=== PATIENT | male | born 1940 | race Caucasian/White ===

== ENCOUNTER 2016-07-29 12:11 | Inpatient (IN) | payer MEDICARE, MEDICAID ==
[~2016-07-29] VITALS: Ht 165.1 cm; Wt 101.8 kg
--- NOTE | ~2016-07-29 | DS ---
PATIENT'S NAME: ZAKIA ORTEGA [facility] AGE: 76 Y [address] ROOM: [place] [address] LOCATION: [facility] ADMIT DATE: 07/27/2016 Discharge Summary DISCHARGE DATE: 07/29/2016 FAMILY PHYSICIAN: Kush Watkins MD ATTENDING PHYSICIAN: Nikolas Mendes ADMITTING DIAGNOSIS: Osteoarthritis, right knee. COMORBIDITIES: 1. Hypertension. 2. Hyperlipidemia. 3. Obstructive sleep apnea. 4. Depression. 5. Epilepsy. 6. Hypothyroidism. 7. Gastroesophageal reflux disease. 8. Dementia. 9. Myelodysplasia. 10. History of deep venous thrombosis, with chronic Coumadin anticoagulation. HOSPITAL COURSE: The patient was admitted for a right total knee arthroplasty. He had a ConforMIS custom implant performed, 38 mm poly, M6LA inserts. He had tranexamic acid pre and postoperatively. Postoperatively, Coumadin was resumed, and Lovenox was used to bridge until INR was therapeutic. Postoperative pain control included Dilaudid and no NSAIDs. Postop visit. Neurovascular is intact to the operative leg. Dressing was clean, dry, and intact. Postop day 1, hemoglobin 8.5. Hemoglobin then drifted down to 7.3. The patient was typed, crossed, and transfused 2 units of packed red blood cells on postop day 2, and arrangements were made for the patient to be transferred to transitional care unit for continued supervised recovery after his total knee. TRANSFER INSTRUCTIONS: Mepilex on until followup visit. Continue titrating Coumadin to INR of 2.5. May discontinue Lovenox when therapeutic INR is reached. Continue other prehospitalization medication regimen as per Internal Medicine. Tramadol 50 mg 1 to 2 p.o. q.4-6 hours as needed for pain. He will continue PT and OT as instructed in transitional care. Call daily INR and CBC to Dr. Watkins for adjustments to be made in his Coumadin dosing. ANA STROUD FOR NIKOLAS MENDES MD PATIENT'S NAME: ZAKIA ORTEGA [facility] AGE: 76 Y [address] ROOM: [place] [id number] LOCATION: [facility] ADMIT DATE: 07/27/2016 Discharge Summary DISCHARGE DATE: 07/29/2016 FAMILY PHYSICIAN: Kush Watkins MD ATTENDING PHYSICIAN: Nikolas Mendes/glenn /[id number] d: 08/04/16 1053 t: 08/10/16 0903, DISCHARGE SUMMARY
--- NOTE | ~2016-07-29 | DS ---
PATIENT'S NAME: ZAKIA ORTEGA [facility] AGE: 76 Y [address] ROOM: [address], [place] [address] LOCATION: [facility] ADMIT DATE: 07/29/2016 Discharge Summary DISCHARGE DATE: 08/05/2016 FAMILY PHYSICIAN: Pablito Watkins MD ATTENDING PHYSICIAN: Nikolas Mendez HOSPITAL COURSE: Mr. Ortega had a right knee replacement courtesy of Dr. Yepez and Dr. Mendez and did well right after surgery. His thought she was unable to help him up, move him around, exercise him, and get back and forth with physical therapy, so transitional care appeared to be the appropriate next to offer him after hospital surgery, so he has been on our transitional care unit for about a week, and he did quite well. He gets up and moves and is walking several 100 feet with the aid of a walker. Able to get out of a chair and get to the bathroom, get to a chair in the room and in and out of bed. Evidently, has even mastered some stairs. Has been reasonably cooperative with his physical therapy program and nurses. Has some dementia, but has seemed to do exceptionally well during this hospitalization. So, at this particular time, I think we are ready to be transferred home. Blood sugars were under control early, and prothrombin time fell right back within the desired range, so he is off Lovenox and on oral Coumadin. Had very little pain and generally did exceptionally well. So, it is home for him at this time, be followed up, to get sutures out next week by cleaner assistant, , and will see me next week to check on his INR. Overall, very successful. FINAL DIAGNOSES: 1. Degenerative right knee with surgical replacement. 2. Borderline diabetic. 3. Seizure disorder. 4. Cardiac artery disease. 5. Dementia with memory loss. 6. Hypertension. 7. Urinary overflow incontinence. 8. Other arthritic conditions. PABLITO WATKINS MD JARASELI/glenn /[id number] d: 08/06/16 1106 t: 08/19/16 1400, DISCHARGE SUMMARY
--- NOTE | ~2016-07-29 | DS ---
PATIENT'S NAME: ZAKIA ORTEGA [facility] AGE: 76 Y [address] ROOM: [place] [address] LOCATION: [facility] ADMIT DATE: 07/27/2016 Discharge Summary DISCHARGE DATE: 07/29/2016 FAMILY PHYSICIAN: Kush Watkins MD ATTENDING PHYSICIAN: Nikolas Mendes ADMITTING DIAGNOSIS: Osteoarthritis, right knee. COMORBIDITIES: 1. Hypertension. 2. Hyperlipidemia. 3. Obstructive sleep apnea. 4. Depression. 5. Epilepsy. 6. Hypothyroidism. 7. Gastroesophageal reflux disease. 8. Dementia. 9. Myelodysplasia. 10. History of deep venous thrombosis, with chronic Coumadin anticoagulation. HOSPITAL COURSE: The patient was admitted for a right total knee arthroplasty. He had a ConforMIS custom implant performed, 38 mm poly, M6LA inserts. He had tranexamic acid pre and postoperatively. Postoperatively, Coumadin was resumed, and Lovenox was used to bridge until INR was therapeutic. Postoperative pain control included Dilaudid and no NSAIDs. Postop visit. Neurovascular is intact to the operative leg. Dressing was clean, dry, and intact. Postop day 1, hemoglobin 8.5. Hemoglobin then drifted down to 7.3. The patient was typed, crossed, and transfused 2 units of packed red blood cells on postop day 2, and arrangements were made for the patient to be transferred to transitional care unit for continued supervised recovery after his total knee. TRANSFER INSTRUCTIONS: Mepilex on until followup visit. Continue titrating Coumadin to INR of 2.5. May discontinue Lovenox when therapeutic INR is reached. Continue other prehospitalization medication regimen as per Internal Medicine. Tramadol 50 mg 1 to 2 p.o. q.4-6 hours as needed for pain. He will continue PT and OT as instructed in transitional care. Call daily INR and CBC to Dr. Watkins for adjustments to be made in his Coumadin dosing. ANA STROUD FOR NIKOLAS MENDES MD PATIENT'S NAME: ZAKIA ORTEGA [facility] AGE: 76 Y [address] ROOM: [place] [id number] LOCATION: [facility] ADMIT DATE: 07/27/2016 Discharge Summary DISCHARGE DATE: 07/29/2016 FAMILY PHYSICIAN: Kush Watkins MD ATTENDING PHYSICIAN: Nikolas Mendes/glenn /[id number] d: 08/04/16 1053 t: 08/10/16 0923, DISCHARGE SUMMARY
--- NOTE | ~2016-07-29 | DS ---
PATIENT'S NAME: ZAKIA ORTEGA [facility] AGE: 76 Y [address] ROOM: [place] [address] LOCATION: [facility] ADMIT DATE: 07/27/2016 Discharge Summary DISCHARGE DATE: 07/29/2016 FAMILY PHYSICIAN: Kush Watkins MD ATTENDING PHYSICIAN: Nikolas Mendes ADMITTING DIAGNOSIS: Osteoarthritis, right knee. COMORBIDITIES: 1. Hypertension. 2. Hyperlipidemia. 3. Obstructive sleep apnea. 4. Depression. 5. Epilepsy. 6. Hypothyroidism. 7. Gastroesophageal reflux disease. 8. Dementia. 9. Myelodysplasia. 10. History of deep venous thrombosis, with chronic Coumadin anticoagulation. HOSPITAL COURSE: The patient was admitted for a right total knee arthroplasty. He had a ConforMIS custom implant performed, 38 mm poly, M6LA inserts. He had tranexamic acid pre and postoperatively. Postoperatively, Coumadin was resumed, and Lovenox was used to bridge until INR was therapeutic. Postoperative pain control included Dilaudid and no NSAIDs. Postop visit. Neurovascular is intact to the operative leg. Dressing was clean, dry, and intact. Postop day 1, hemoglobin 8.5. Hemoglobin then drifted down to 7.3. The patient was typed, crossed, and transfused 2 units of packed red blood cells on postop day 2, and arrangements were made for the patient to be transferred to transitional care unit for continued supervised recovery after his total knee. TRANSFER INSTRUCTIONS: Mepilex on until followup visit. Continue titrating Coumadin to INR of 2.5. May discontinue Lovenox when therapeutic INR is reached. Continue other prehospitalization medication regimen as per Internal Medicine. Tramadol 50 mg 1 to 2 p.o. q.4-6 hours as needed for pain. He will continue PT and OT as instructed in transitional care. Call daily INR and CBC to Dr. Watkins for adjustments to be made in his Coumadin dosing. ANA STROUD FOR NIKOLAS MENDES MD PATIENT'S NAME: ZAKIA ORTEGA [facility] AGE: 76 Y [address] ROOM: [place] [id number] LOCATION: [facility] ADMIT DATE: 07/27/2016 Discharge Summary DISCHARGE DATE: 07/29/2016 FAMILY PHYSICIAN: Kush Watkins MD ATTENDING PHYSICIAN: Nikolas Mendes/glenn /[id number] d: t: 08/08/16 0802, DISCHARGE SUMMARY
[~2016-07-29 12:11] MED LIST: BUMETANIDE2 MG PO; CELEXA40 MG PO; COUMADIN ** IA5 MG PO; COUMADIN **IA1 MG PO; COUMADIN **IA10 MG PO; COUMADIN **IA2.5 MG PO; CPAP INH; DEPAKOTE DELAY250 MG PO; DEPAKOTE EXTEN250 MG PO; DESYREL50 MG PO; FEOSOL325 MG PO; FOLIC ACID1 MG PO; LEVOTHROID (S112 MCG PO; LEVOTHROID (S125 MCG PO; LEVOTHYROXINE100 MCG PO; LOVENOX 6060 MG/0.6 SUB-Q; PRILOSEC20 MG PO; RANEXA ER500 MG PO; SINEMET CR 25-1 EACH PO; SINEMET PO; THERAGRAN-M1 TAB PO; VITAMIN B-1100 M1 PO
--- NOTE | 2016-07-29 16:38 | NUR ---
D: Nursing Admission Summary From [address] [place] [address] to TCU I: Nursing interventions provided to support the patient's individual plan of care R: MOBILITY-- Moves 1 assist with walker and gaitbelt. Knee is stiff. NUTRITION-- Good appetite, eats small amounts to control diabetes. SKIN/INCISIONS/WOUNDS-- Incision to right knee covered with mepilex. Has scattered bruises and abrasions and redness to bottom. SELF CARES-- Patient able to do most own cares, needs encouragement. BOWEL/BLADDER-- Continent of both. Last BM on 07/27/16. Dulcolax tabs given on 07/29/16 by Leno stacy. RESPIRATORY-- PAIN-- PSYCHOSOCIAL-- COGNITION-- SPECIAL NEEDS-- BLEEDING-- SENSORY IMPAIRMENTS/DENTAL NEEDS: TEACHING NEEDS-- INFECTION CONCERNS: RISK FOR ELOPEMENT: NEED FOR BED/MOVEMENT ALARM: DISMISSAL PLANS: Other: P: Current plan of care reviewed and updated
--- NOTE | 2016-07-29 16:43 | NUR ---
D: Nursing Admission Summary From [facility] to [facility] I: Nursing interventions provided to support the patient's individual plan of care R: MOBILITY-- 1 assist with walker and gaitbelt. NUTRITION-- Good appetite, good intake. Eats small meals to control diabetes with diet. SKIN/INCISIONS/WOUNDS-- Abrasions/bruising throughout extremities. Redness to bottom, Mepilex covering right knee incision. SELF CARES-- Patient able to do own self cares with encouragement. BOWEL/BLADDER-- Continent of both. Last BM on 07/27, [facility] gave dulcolax tabs today 07/29 RESPIRATORY-- Clear throughout. Does wear cpap at night and occasionally needs oxygen. PAIN-- Pain has been well controlled, have offered multiple times, but patient denies need for pain medication at this time. PSYCHOSOCIAL-- Does have history of suicidal thoughts, denies them at this time. Takes celexa, ativan, trazodone for sleeping and depression. COGNITION-- Alert and oriented X 3. SPECIAL NEEDS-- BLEEDING-- Takes lovenox BID until INR >2.0. Takes coumadin that Dr. SHONDA Watkins is dosing daily. PT/INR and CBC drawn daily. Needs printed and put on chart for SHONDA Watkins. SENSORY IMPAIRMENTS/DENTAL NEEDS: Left ear deaf, wears glasses for corrective vision. TEACHING NEEDS-- INFECTION CONCERNS: Handwashing, incision to right knee RISK FOR ELOPEMENT: None NEED FOR BED/MOVEMENT ALARM: at night per protocol DISMISSAL PLANS: home Other: P: Current plan of care reviewed and updated XOCHITL [place]
--- NOTE | 2016-07-30 03:01 | NUR ---
Significant Event:PT AAOX3.PLEASANT WITH STAFF AND CARES. DENIES PAIN DURING SHIFT. BS 155 AT HS NO INSULIN NEEDED. MEPIPLEX TO RIGHT KNEE CLEAN DRY AND INTACT. UP WITH 1 ASSIST STAFF, GB, WALKER. DOES WELL WITH TRANSERS. IV TO LEFT HAND DC'D DUE TO LEAKING. GAVE ORDER TO DC. PT TAKES MEDICAITON WHOLE WITH NO COMPLICAIONTS NOTED. Follow up:
[2016-07-30 06:32] LABS: BASOPHIL # 0.1 K/uL (0.0-0.2); BASOPHIL % 0.6 %; EOSINOPHIL # 0.1 K/uL (0.0-0.5); EOSINOPHIL % 1.7 %; HEMOGLOBIN 9.4 g/dL (11.0-16.0); IMMATURE GRANULOCYTE # 0.1 K/uL (0.0-0.3); IMMATURE GRANULOCYTE % 0.6 %; LYMPHOCYTE # 1.8 K/uL (0.8-4.0); LYMPHOCYTE % 22.6 %; MCHC 33.5 gm/dL (32.0-36.5); MCV 92.4 fl (83.0-98.0); MONOCYTE # 1.2 K/uL (0.0-1.0); MONOCYTE % 14.6 %; MPV 11.6 fl (9.4-12.4); NEUTROPHIL # (ANC) 4.7 K/uL (1.4-9.0); NEUTROPHIL % 59.9 %; NRBC % 0 /100WBC (0-0.00); PLATELET COUNT 114 K/uL (150-450); RDW-CV 15.8 % (11.9-14.6); WBC 7.9 K/uL (4.0-11.0)
[2016-07-30 06:33] LABS: HEMATOCRIT 28.1 % (37.0-53.0); MCH 30.9 pg (27.0-34.0); RBC 3.04 M/uL (3.50-5.50)
[2016-07-30 06:35] LABS: INR - (THERAPEUTIC) 1.3 (0.9-1.1)
--- NOTE | 2016-07-30 14:45 | NUR ---
Significant Event: A/0 X 3, PLEASANT AND COOPERATIVE, 1 ASSIST WALKER AND GB, HERE TO VISIT, PT/OT SERVICES, DR. LOYOLA HERE THIS AM ORDERS COUMADIN 15MG TODAY AND TOMORROW, DC ACCUCHECKS AND SLIDING SCALE INSULIN. MEPILEX DRESSING TO L KNEE DRY AND INTACT, ES TYLENOL GIVEN AT 0830 FOR KNEE PAIN. HGB 9.4 TODAY. CONTINUES LOVENOX. TEMP 99.0 THIS AM. Follow up:
--- NOTE | 2016-07-31 01:29 | NUR ---
Significant Event: Patient is alert and oriented. Transfers with one assist with gait belt and walker. Pleasant and cooperative with cares. Mepiplex to right knee clean, dry and intact. Denies pain this shift. Continues on lovenox. Follow up:
[2016-07-31 05:40] LABS: BASOPHIL % 0.5 %; EOSINOPHIL # 0.2 K/uL (0.0-0.5); EOSINOPHIL % 2.7 %; HEMATOCRIT 26.9 % (37.0-53.0); HEMOGLOBIN 8.9 g/dL (11.0-16.0); IMMATURE GRANULOCYTE % 0.5 %; LYMPHOCYTE # 1.7 K/uL (0.8-4.0); LYMPHOCYTE % 23.1 %; MCH 30.7 pg (27.0-34.0); MCHC 33.1 gm/dL (32.0-36.5); MCV 92.8 fl (83.0-98.0); NEUTROPHIL # (ANC) 4.3 K/uL (1.4-9.0); NEUTROPHIL % 59.2 %; NRBC % 0 /100WBC (0-0.00); PLATELET COUNT 123 K/uL (150-450); RDW-CV 15.4 % (11.9-14.6); WBC 7.3 K/uL (4.0-11.0)
[2016-07-31 05:46] LABS: INR - (THERAPEUTIC) 1.6 (0.9-1.1)
--- NOTE | 2016-07-31 13:54 | NUR ---
Significant Event: Alert/oriented. VSS. 1a walker/gb. Right knee mepilex CDI. No prn medications so far this shift. Daily INR, lovenox until greater than 2.0 Follow up:
--- NOTE | 2016-08-01 03:40 | NUR ---
Significant Event: Patient is alert and oriented. Transfers with one assist and gait belt/ walker. Pleasant and cooperative with cares. Mepiplex to right knee clean, dry and intact. Daily INR. Denies pain this shift. Lovenox continues until INR greater than 2.0 Follow up:
[2016-08-01 05:39] LABS: BASOPHIL # 0.1 K/uL (0.0-0.2); EOSINOPHIL # 0.2 K/uL (0.0-0.5); EOSINOPHIL % 3.8 %; HEMOGLOBIN 8.9 g/dL (11.0-16.0); IMMATURE GRANULOCYTE % 0.5 %; LYMPHOCYTE # 1.6 K/uL (0.8-4.0); LYMPHOCYTE % 27.1 %; MCH 30.9 pg (27.0-34.0); MCV 93.8 fl (83.0-98.0); MONOCYTE # 0.7 K/uL (0.0-1.0); MONOCYTE % 11.6 %; MPV 10.1 fl (9.4-12.4); NEUTROPHIL # (ANC) 3.3 K/uL (1.4-9.0); NRBC % 0 /100WBC (0-0.00); PLATELET COUNT 140 K/uL (150-450); RBC 2.88 M/uL (3.50-5.50); WBC 5.8 K/uL (4.0-11.0)
[2016-08-01 05:49] LABS: PROTIME 21.8 SECONDS (9.6-11.1)
--- NOTE | 2016-08-01 17:08 | NUR ---
Significant Event: Follow up: UP to chair, up to toilet with standby assist x1. Dressing to right knee c/d/i. offers very little c/o pain took tylenol at 1126 with good relief. lovenox stopped today, and coumadin adjusted.
--- NOTE | 2016-08-02 04:12 | NUR ---
Significant Event: Patient alert and oriented x3. Up with one assist and walker. Right knee mepilex clean,dry and intact. Vital signs stable, on room air. Wears cpap at night. No complaints of pain. Foot pumps on. Has slept and rested well all shift. Follow up:
[2016-08-02 06:34] LABS: INR - (THERAPEUTIC) 2.2 (0.9-1.1); PROTIME 25.1 SECONDS (9.6-11.1)
--- NOTE | 2016-08-02 12:13 | NUR ---
76 y/o male from [place], [place] admitted to TCU from [address] [place] [address] after r) knee replacement surgery with . patient is also followed by Dr.JD Watkins of [place]. He is receiving OT/PT and daily PT/INR to monitor his coumadin levels. Patient lives with his significant other Ava Shelley in the [facility] on [address]. Ava inquired about low income housing, like [facility], and SW editorial intern gave patient and s.o. the phone # for [facility] to inquire about barrier free housing in [facility]. Patient has medicare/medicaid/[facility] for insurance. [place] and states the [place] will provide a van for transportation, as s.o. states she has put alot of miles on her car going to dr eagle and therapy appointements. Patient gets the majority of his medications through the [place]. He also can get his weekly coumadin lab draws (PT/INR) through the [place], or here in [place], as s.o. states it is too far to drive to [place] to Dr.JD Watkinss office every week for labwork, and then drive to for therapy and counseling appointments. Patient also gets IV iron and s.o. states he could get the IV iron when he gets his labdraws. [facility]. Would like to d/c on Monday08-05-16 at 1100am if medically ok to d/c at that time. Therapy in agreement to plan. Patient states is in agreement to plan at this time. patient has a 4 wheeled walker through the [place]. He also obtained a toilet seat riser, toilet safety frame and tub chair from the [employer].
--- NOTE | 2016-08-02 16:59 | NUR ---
Significant Event: Pt is a/o x 3, pleasant and cooperative with cares. Gave tylenol x 2, last at 1408 with relief noted. Pt had shower with therapy and got shaved by nurse. V/S stable. Ambulated with therapy and again with nursing this afternoon. L) knee mepilex clean/dry/intact, peeling slightly at the edges. Noted a couple of red spots on upper back; pt c/o itching; reports itching stopped after shower. Got 10 mg coumadin today per Dr. Watkins. [facility]SM WNL. Pt made mod indep in room. Follow up:
--- NOTE | 2016-08-03 03:49 | NUR ---
Significant Event: Alert/Oriented x3. Mod I in room. Ice pack to right knee. Tylenol 650 MG PO given at 2158 with relief for right knee pain. Mepilex in place over right knee surgical incision, CDI. Follow up:
[2016-08-03 06:18] LABS: INR - (THERAPEUTIC) 2.1 (0.9-1.1); PROTIME 23.4 SECONDS (9.6-11.1)
--- NOTE | 2016-08-03 11:00 | NUR ---
Social visit with patient's . SW provided with information on local DME providers who carry FWWs. states she is going to stop by the [employer] to see if they have one. Otherwise, she will look into purchasing one from [employer] or [employer] for cost savings. Plan to d/c on Saturday 08/05 at 1100 if medically alright to do so.
--- NOTE | 2016-08-03 13:59 | NUR ---
Significant Event: Patient alert and oriented. Hard of hearing. Ad dylan in room and halls. Mepilex to right knee intact. Taking Ultram and Tylenol for pain. On hazardous medications. Follow up:
--- NOTE | 2016-08-04 00:52 | NUR ---
Significant Event: Alert/oriented x3. Mepilex dressing on R) knee CDI. Patient denied need for ice pack. Denied pain at 1950. Patient Mod I in room. Back rub given. Patient requested 1,000 mg of Tylenol at 2347 for mild R) knee pain. Edema present in right leg. Takes meds whole w/out difficulty. Follow up:
[2016-08-04 04:57] LABS: INR - (THERAPEUTIC) 2.3 (0.9-1.1); PROTIME 25.3 SECONDS (9.6-11.1)
--- NOTE | 2016-08-04 14:51 | NUR ---
Significant Event: Follow up: Up ad dylan in room. Little c/o pain. tylenol for pain this am. Meiplex changed due to falling off. plans to discharge to his home tomorrow.
--- NOTE | 2016-08-04 17:30 | NUR ---
Tylenol po at 1630 for pain knee rated at 5. Pt is up in the chair
--- NOTE | 2016-08-05 04:43 | NUR ---
Significant Event: A/O x3. DENIES ANY PAIN. REFUSE ICE PACK. PT UP AD XOCHITL IN ROOM. MOD I IN ROOM. Follow up:
[2016-08-05 05:08] LABS: PROTIME 22.3 SECONDS (9.6-11.1)
--- NOTE | 2016-08-05 05:36 | NUR ---
D: Nursing discharge Summary From 07/29/16 to 08/05/16 I: Nursing interventions provided to support the patient's individual plan of care R: MOBILITY-- indepedent with walker NUTRITION-- diabetic diet SKIN/INCISIONS/WOUNDS-- follow up appointment monday for staple removal SELF CARES-- independent BOWEL/BLADDER-- continent RESPIRATORY-- room air daily, c-pap at night PAIN-- denies. tylenol prn PSYCHOSOCIAL-- COGNITION-- A/O SPECIAL NEEDS-- Walker BLEEDING-- Coumadin SENSORY IMPAIRMENTS/DENTAL NEEDS: glasses TEACHING NEEDS-- INFECTION CONCERNS: handwashing. signs and symptoms of infection to knee. RISK FOR ELOPEMENT: none NEED FOR BED/MOVEMENT ALARM:none DISMISSAL PLANS: To home. Other: P: Current plan of care reviewed and updated Emmanuel 08/05/16
[2016-08-05] MEDS ORDERED: NORCO 5-325 TA1 EACH PO (10:43)
--- NOTE | 2016-08-05 11:45 | NUR ---
D: Nursing Dismissal Summary I: Nursing interventions provided to support the patient's individual plan of care R: MOBILITY-- ambulating independent in room and in halls. NUTRITION-- Diabetic diet SKIN/INCISIONS/WOUNDS-- Tabitha to right knee intact. Covered with guaze and tubigrip SELF CARES-- Needs only minimal assistance with ADL's. OT helped him with shower this morning. BOWEL/BLADDER-- Continent of bowel and bladder RESPIRATORY-- On room air. Wears CPAP at night. PAIN-- Taking Ultram and Tylenol PRN for pain. PSYCHOSOCIAL-- Good support from family and COGNITION-- Alert and oriented. NEED FOR BED/MOVEMENT ALARM: As per hospital protocol DISMISSAL PLANS: Back to home with Other: P: Current plan of care reviewed and updated Danni Ramos RN 08/05/16
[2016-08-30] MEDS ORDERED: FLOMAX0.4 MG PO (18:15)
[2016-08-30] MEDS ORDERED: FLORINEF0.1 MG PO (18:15)
[2016-08-30] MEDS ORDERED: PRINIVIL OR ZES10 MG PO (18:15)
[2016-08-30] MEDS ORDERED: LIPITOR40 MG PO (18:16)
[2016-08-30] MEDS ORDERED: DESYREL50 MG PO (18:16)
[2016-08-30] MEDS ORDERED: DEPAKOTE DELAY500 MG PO (18:16)
[2016-08-30] MEDS ORDERED: IMDUR60 MG PO (18:16)
[2016-08-30] MEDS ORDERED: ASPIRIN LO-DOSE81 MG PO (18:16)
[2016-08-30] MEDS ORDERED: TYLENOL325 MG PO (18:16)
[2016-08-30] MEDS ORDERED: LASIX20 MG PO (18:16)
[2016-08-30] MEDS ORDERED: CELEXA40 MG PO (18:16)
[2016-08-30] MEDS ORDERED: NORVASC10 MG PO (18:16)
[2016-08-30] MEDS ORDERED: CENTURY ADULTS1 EACH PO (18:16)
[2016-08-30] MEDS ORDERED: PROTONIX40 MG PO (18:17)
[2016-08-30] MEDS ORDERED: FOLIC ACID1 MG PO (18:17)
[2016-08-30] MEDS ORDERED: INFED100 MG/2 M IM (18:17)
[2016-08-30] MEDS ORDERED: THIAMINE HCL100 MG PO (18:17)
[2016-08-30] MEDS ORDERED: RISPERDAL0.25 MG PO (18:17)
[2016-08-31] MEDS ORDERED: CYMBALTA20 MG PO (10:39)
== END 2016-08-05 11:20 | disposition disaster alternative care site (69) | DRG 560 ==
LOC: GSNF 12:11
PROVIDERS: Family Medicine; ADMIT Orthopaedic Surgery
DX: Z47.1 Aftercare following joint replacement surgery (principal); I50.22 Chronic systolic (congestive) heart failure; F03.90 Unspecified dementia, unspecified severity, without behavioral disturbance, psychotic disturbance, mood disturbance, and anxiety; I11.0 Hypertensive heart disease with heart failure; D46.9 Myelodysplastic syndrome, unspecified; K21.9 Gastro-esophageal reflux disease without esophagitis; F32.9 Major depressive disorder, single episode, unspecified; Z96.651 Presence of right artificial knee joint; E78.5 Hyperlipidemia, unspecified; E03.9 Hypothyroidism, unspecified; G40.909 Epilepsy, unspecified, not intractable, without status epilepticus; I25.10 Atherosclerotic heart disease of native coronary artery without angina pectoris; G47.33 Obstructive sleep apnea (adult) (pediatric); R73.03 Prediabetes; N39.490 Overflow incontinence; Z86.718 Personal history of other venous thrombosis and embolism; Z79.01 Long term (current) use of anticoagulants; Z79.899 Other long term (current) drug therapy; M19.90 Unspecified osteoarthritis, unspecified site
CPT/HCPCS: J1650

== ENCOUNTER → 2016-10-10 | Outpatient (CLI) | payer MEDICARE, MEDICAID ==
[~2016-10-10] MED LIST changes: +ASPIRIN LO-DOSE81 MG PO; +CENTURY ADULTS1 EACH PO; +CYMBALTA20 MG PO; +DEPAKOTE DELAY500 MG PO; +FLOMAX0.4 MG PO; +FLORINEF0.1 MG PO; +IMDUR60 MG PO; +INFED100 MG/2 M IM; +LASIX20 MG PO; +LIPITOR40 MG PO; +NORCO 5-325 TA1 EACH PO; +NORVASC10 MG PO; +PRINIVIL OR ZES10 MG PO; +PROTONIX40 MG PO; +RISPERDAL0.25 MG PO; +THIAMINE HCL100 MG PO; +TYLENOL325 MG PO
[2016-10-10 13:41] LABS: BASOPHIL # 0.1 K/uL (0.0-0.2); BASOPHIL % 0.9 %; EOSINOPHIL # 0.2 K/uL (0.0-0.5); EOSINOPHIL % 2.3 %; IMMATURE GRANULOCYTE % 0.3 %; LYMPHOCYTE # 2.7 K/uL (0.8-4.0); MCHC 32.1 gm/dL (32.0-36.5); MCV 93.3 fl (83.0-98.0); MONOCYTE # 0.5 K/uL (0.0-1.0); MONOCYTE % 7.7 %; MPV 10.7 fl (9.4-12.4); NEUTROPHIL # (ANC) 3.4 K/uL (1.4-9.0); NEUTROPHIL % 49.8 %; NRBC % 0 /100WBC (0-0.00); WBC 6.9 K/uL (4.0-11.0)
[2016-10-10 13:44] LABS: PLATELET COUNT 153 K/uL (150-450); RDW-CV 15.4 % (11.9-14.6)
[2016-10-10 13:50] LABS: INR - (THERAPEUTIC) 1.17 (0.92-1.07); PROTIME 12.3 SECONDS (9.8-11.4)
[2016-10-10 14:07] LABS: ALBUMIN 3.1 gm/dL (3.5-5.0); ANION GAP 9.3 (10.0-19.0); CALCIUM 7.9 mg/dL (8.5-10.5); POTASSIUM 4.3 mMol/L (3.7-5.1); TOTAL PROTEIN 6.6 g/dL (6.0-8.4)
[2016-10-10 14:15] LABS: TOTAL BILIRUBIN 0.5 mg/dL (0.0-1.5)
== END | disposition disaster alternative care site (69) ==
LOC: LELM 13:26
PROVIDERS: Family Medicine
DX: D68.318 Other hemorrhagic disorder due to intrinsic circulating anticoagulants, antibodies, or inhibitors (principal); Z79.01 Long term (current) use of anticoagulants; R42 Dizziness and giddiness; M23.51 Chronic instability of knee, right knee

== ENCOUNTER 2016-10-25 11:29 | Emergency (ER) | payer MEDICARE, MEDICAID ==
--- NOTE | ~2016-10-25 | ER ---
PATIENT'S NAME: ZAKIA ORTEGA [facility] AGE: 76 Y [address] ROOM: [place] [address] LOCATION: [facility] ADMIT DATE: 10/25/2016 ER/Outpatient Report DISCHARGE DATE: 10/25/2016 FAMILY PHYSICIAN: Kush Watkins MD ATTENDING PHYSICIAN: Pablo Cobb CHIEF COMPLAINT: Generalized weakness, possible confusion and dizziness. HISTORY OF PRESENT ILLNESS: The patient arrives by private vehicle with his friend and roommate. The roommate notes that he just has not been himself and has been slow decline over the last several months. For the last 2 days, he has been particularly slowed mentally. There has been no particular confusion, falls, or anything along those lines, which just has been his normal self and thinks maybe he has been a little more uncomfortable. No acute changes today. [facility] He normally talk with Dr. Watkins in [place]. No medications have been taken today. No other acute findings or concerns. PAST MEDICAL HISTORY: Documented on the record and reviewed by me. SOCIAL HISTORY: Documented on the record and reviewed by me. MEDICATIONS: Documented on the record and reviewed by me. ALLERGIES: DOCUMENTED ON THE RECORD AND REVIEWED BY ME. REVIEW OF SYSTEMS: All systems reviewed and negative except as noted in HPI. PHYSICAL EXAMINATION: VITAL SIGNS: Blood pressure 161/64, pulse 85, respiratory rate is 20, temperature 98.6, SpO2 is 96% on room air. Pain is rated 2/10. GENERAL: An age-appropriate male. No obvious pain or distress. NEURO: The patient is awake. He is alert to person, place, and situation. He is alert, it is 2017, not in month or date. He has no focal deficits. No asymmetry. No nystagmus. No difficulty with rapid alternating movements. No problem with complex cognitive plan. No problems with past pointing. HEENT: Normocephalic and atraumatic. Eyes are PERRL. Oropharynx is clear. NECK: Supple. Trachea is midline CHEST/HEART: Regular rate and rhythm with PATIENT'S NAME: ZAKIA ORTEGA [facility] AGE: 76 Y [address] ROOM: [place] [address] LOCATION: [facility] ADMIT DATE: 10/25/2016 ER/Outpatient Report DISCHARGE DATE: 10/25/2016 FAMILY PHYSICIAN: Kush Watkins MD ATTENDING PHYSICIAN: Pablo Cobb no murmurs. LUNGS: Clear to auscultation bilateral with no rhonchi, wheezes, or rales. ABDOMEN: Soft, nontender, and nondistended. No rebound or guarding. BACK: Back is normal to inspection and palpation. EXTREMITIES: Warm and well perfused. No obvious abnormalities, other than some trace edema at the sock line bilateral. SKIN: Warm, dry, and intact. LABORATORY DATA AND X-RAYS: An EKG, sinus rhythm with rate of 80 with normal intervals and left axis deviation. No signs of acute ischemia. No significant change compared to prior from 07/26/2016. Labs: Blood gas; pH 7.45, pCO2 is 39, PO2 is 93, HC03 is 27.1, lactate is 1.4. CMS: Sodium 146, potassium 4.0, chloride 111, CO2 is 27, BUN is 24, creatinine 2.1. GFR is 31. LFTs grossly unremarkable. Bilirubin, AST, and ALT within normal limits. Initial CK-MB and troponin below threshold. Free T4 and TSH within limits. ProBNP 465. Urinalysis without evidence of infection. Procalcitonin below threshold. CBC: White count is 5.1, hemoglobin is 9.2, and platelets of 150. INR is 1.16. Head CT and chest x-ray unremarkable per my read. Head CT confirmed by Radiology. IMPRESSION: 1. General decline, chronic. 2. Mild hypernatremia. 3. Chronic renal failure at baseline. 4. Chronic anemia at baseline. EMERGENCY DEPARTMENT COURSE: The patient was seen and evaluated as above. Extensive workup was undertaken. Based on time frame, single troponin is appropriate to exclude ACS. Overall, the patient appears to be at baseline. He is ambulatory with his walker as normal. I did discharge the patient home with his friend in good condition. He has plans to be seen tomorrow at the [facility]. I also discussed the care of Mr. Ortega with Dr. Watkins, the patient's primary care provider, who agrees the patient likely needs higher level of care, such as [facility] cares. The patient does not meet admission criteria at this time and thus will need to follow up as an outpatient. MD HERACLIO GILLILAND/glenn PATIENT'S NAME: ZAKIA ORTEGA [facility] AGE: 76 Y [address] ROOM: [place] [address] LOCATION: [facility] ADMIT DATE: 10/25/2016 ER/Outpatient Report DISCHARGE DATE: 10/25/2016 FAMILY PHYSICIAN: Kush Watkins MD ATTENDING PHYSICIAN: Pablo Cobb /[id number] d: 10/27/16 1133 t: 11/02/16 0932, OUTPATIENT REPORT
[2016-10-25 13:09] LABS: BASOPHIL % 0.8 %; EOSINOPHIL # 0.2 K/uL (0.0-0.5); HEMATOCRIT 27.7 % (37.0-53.0); HEMOGLOBIN 9.2 g/dL (11.0-16.0); IMMATURE GRANULOCYTE % 0.2 %; LYMPHOCYTE # 1.5 K/uL (0.8-4.0); LYMPHOCYTE % 30.1 %; MCH 30.9 pg (27.0-34.0); MCHC 33.2 gm/dL (32.0-36.5); MONOCYTE # 0.5 K/uL (0.0-1.0); MONOCYTE % 9.1 %; MPV 10.7 fl (9.4-12.4); NEUTROPHIL # (ANC) 2.9 K/uL (1.4-9.0); NEUTROPHIL % 56.8 %; NRBC % 0 /100WBC (0-0.00); PLATELET COUNT 150 K/uL (150-450); RBC 2.98 M/uL (3.50-5.50); RDW-CV 14.7 % (11.9-14.6); WBC 5.1 K/uL (4.0-11.0)
[2016-10-25 13:21] LABS: INR - (THERAPEUTIC) 1.16 (0.92-1.07); PROTIME 12.2 SECONDS (9.8-11.4); PTT 25 SECONDS (25-32)
[2016-10-25 13:30] LABS: BILIRUBIN URINE NEGATIVE (NEGATIVE); BLOOD URINE 10 /UL (NEGATIVE); COLOR URINE YELLOW (YELLOW); GLUCOSE URINE NEGATIVE (NEGATIVE); KETONE URINE NEGATIVE (NEGATIVE); LEUKOCYTES URINE NEGATIVE /UL (NEGATIVE); NITRITE URINE NEGATIVE (NEGATIVE); PROTEIN URINE 30 mg/dL (NEGATIVE); SPEC GRAVITY URINE 1.015 (1.003-1.035); TURBIDITY URINE CLEAR (CLEAR); UROBILINOGEN URINE NORMAL (NORMAL)
[2016-10-25 13:31] LABS: ALBUMIN 2.9 gm/dL (3.5-5.0); ALK PHOS 58 IU/L (33-138); ALT 15 IU/L (12-78); AST 12 IU/L (10-40); BLOOD UREA NITROGEN 24 mg/dL (6-24); CALCIUM 8.1 mg/dL (8.5-10.5); CHLORIDE 111 mMol/L (96-110); CO2 27 mMol/L (22-32); CREATININE 2.1 mg/dL (0.6-1.3); ESTIMATED GFR (MDRD EQUATION) 31; TOTAL PROTEIN 6.3 g/dL (6.0-8.4)
[2016-10-25 13:33] LABS: SODIUM 146 mMol/L (135-145); TOTAL BILIRUBIN 0.3 mg/dL (0.0-1.5)
[2016-10-25 13:39] LABS: BACTERIA URINE NEGATIVE (NEGATIVE); EPITHELIAL URINE 0-2 #/HPF (NEGATIVE); RBC URINE 0-2 #/HPF (NEGATIVE); WBC URINE NEGATIVE #/HPF (NEGATIVE)
[2016-10-25 14:10] LABS: BICARBONATE 27.1 mmol/L (18.0-23.0); LACTATE 1.4 mEq/L (0.50-1.60); PCO2 39 mmHg (35-45); PO2 93 mmHg (80-90)
== END 2016-10-25 14:59 | disposition disaster alternative care site (69) ==
LOC: GMED 11:29
PROVIDERS: Emergency Medicine
DX: R53.81 Other malaise (principal); E87.0 Hyperosmolality and hypernatremia; N18.9 Chronic kidney disease, unspecified; D64.9 Anemia, unspecified

== ENCOUNTER 2016-11-30 12:19 | Emergency (ER) | payer MEDICARE, MEDICAID ==
--- NOTE | ~2016-11-30 | ER ---
PATIENT'S NAME: ZAKIA ORTEGA [facility] AGE: 76 Y [address] ROOM: [place] [address] LOCATION: [facility] ADMIT DATE: 11/30/2016 ER/Outpatient Report DISCHARGE DATE: 11/30/2016 FAMILY PHYSICIAN: Kush Watkins MD ATTENDING PHYSICIAN: Génesis Dennis Time of patient arrival is 1219 hours. Time of patient's evaluation is 1225 hours. CHIEF COMPLAINT: Shakiness. HISTORY OF PRESENT ILLNESS: This 76-year-old male presents to ER, states he has not "felt well for a couple of weeks." The patient states his appetite has been down. He states he has had no nausea or vomiting. No diarrhea. He states he maybe feels a little bit weak as well. Has not been eating much. He states that he has had a few loose stools, but has not had a bowel movement in the last couple of days. He has had no pain with urination. No chest pain. Has a little bit of shortness of breath, but he states that is nothing new for him. He states he was at his primary care physician's 4 days ago. Had some sutures removed, but states he was feeling fine at that time and did think about asking his doctor about why he was not feeling well. MEDICATIONS: Please see medication list in nurse's notes. PAST MEDICAL HISTORY: Hypertension, hypercholesterolemia, sleep apnea, epilepsy, hypothyroidism, acid reflux, dementia, history of DVT, is on blood thinner. SOCIAL HISTORY: Denies smoking, drug, or alcohol use. REVIEW OF SYSTEMS: All systems reviewed and negative with the exception of those discussed in the HPI. PHYSICAL EXAMINATION: VITAL SIGNS: Height 5 feet 5 inches, stated. Weight 86.7 kg, taken. Blood pressure is 132/64, pulse 82, respirations 18, temperature 99 degrees tympanically, saturations 96% on room air. Minnie Coma Score is 15. GENERAL: Alert, calm, well-developed male, in no obvious distress. HEENT: Head: Normocephalic. Eyes: Pupils are equal and reactive to light. He does display moist mucous membranes. PATIENT'S NAME: ZAKIA ORTEGA [facility] AGE: 76 Y [address] ROOM: [place] [address] LOCATION: [facility] ADMIT DATE: 11/30/2016 ER/Outpatient Report DISCHARGE DATE: 11/30/2016 FAMILY PHYSICIAN: Kush Watkins MD ATTENDING PHYSICIAN: Génesis Dennis LUNGS: Clear to auscultation bilaterally. HEART: Regular rate and rhythm. EXTREMITIES: No clubbing or cyanosis. He does have equal strength bilaterally in upper and lower extremities. SKIN: Warm, dry, and intact. LABORATORY DATA: CBC: White count is 5.4, hemoglobin is 9.7. INR is 1.16. CMS: Potassium is 3.5, BUN 17, creatinine is 1.9, estimated GFR is 35, magnesium is 1.7. CPK is 183, CK-MB is 1.6, troponin-I is less than 0.040. TSH is 1.960. proBNP is 618. Urinalysis is negative for any infection. No blood in his urine. IMPRESSION: 1. Decreased appetite and some mild weakness. 2. Anemia. ASSESSMENT AND PLAN: We did monitor the patient here for quite some time. The patient did receive a liter of IV fluids. He states he is feeling better and would like to go home at this time. Advised the patient to continue to push fluids and I would like him to follow up with Dr. Watkins in the next 1 to 2 days or return if his symptoms worsen. The patient understands and agrees with care. MILY LYNN PA-C FOR MD BRENDA POLLACK/glenn /[id number] d: 11/30/16 2248 t: 12/03/16 0820, OUTPATIENT REPORT
[2016-11-30 13:15] LABS: BASOPHIL # 0.1 K/uL (0.0-0.2); BASOPHIL % 1.1 %; EOSINOPHIL # 0.1 K/uL (0.0-0.5); EOSINOPHIL % 2.6 %; HEMATOCRIT 28.8 % (37.0-53.0); HEMOGLOBIN 9.7 g/dL (11.0-16.0); IMMATURE GRANULOCYTE % 0.2 %; LYMPHOCYTE # 1.8 K/uL (0.8-4.0); LYMPHOCYTE % 32.6 %; MCH 31.4 pg (27.0-34.0); MCHC 33.7 gm/dL (32.0-36.5); MCV 93.2 fl (83.0-98.0); MONOCYTE # 0.5 K/uL (0.0-1.0); MONOCYTE % 9.8 %; MPV 11.7 fl (9.4-12.4); NEUTROPHIL # (ANC) 2.9 K/uL (1.4-9.0); NEUTROPHIL % 53.7 %; NRBC % 0 /100WBC (0-0.00); PLATELET COUNT 138 K/uL (150-450); RBC 3.09 M/uL (3.50-5.50); RDW-CV 13.7 % (11.9-14.6); WBC 5.4 K/uL (4.0-11.0)
[2016-11-30 13:21] LABS: INR - (THERAPEUTIC) 1.16 (0.92-1.07); PROTIME 12.2 SECONDS (9.8-11.4); PTT 26 SECONDS (25-32)
[2016-11-30 13:38] LABS: ALBUMIN 3.1 gm/dL (3.5-5.0); ALK PHOS 43 IU/L (33-138); ALT 18 IU/L (12-78); ANION GAP 11.5 (10.0-19.0); AST 19 IU/L (10-40); BLOOD UREA NITROGEN 17 mg/dL (6-24); CALCIUM 8.2 mg/dL (8.5-10.5); CHLORIDE 108 mMol/L (96-110); CO2 27 mMol/L (22-32); CPK 183 IU/L (35-332); CREATININE 1.9 mg/dL (0.6-1.3); MAGNESIUM 1.7 mg/dL (1.8-2.6); POTASSIUM 3.5 mMol/L (3.7-5.1); SODIUM 143 mMol/L (135-145); TOTAL PROTEIN 6.2 g/dL (6.0-8.4)
[2016-11-30 13:39] LABS: ESTIMATED GFR (MDRD EQUATION) 35; TOTAL BILIRUBIN 0.4 mg/dL (0.0-1.5)
[2016-11-30 14:07] LABS: BILIRUBIN URINE NEGATIVE (NEGATIVE); BLOOD URINE NEGATIVE /UL (NEGATIVE); COLOR URINE YELLOW (YELLOW); GLUCOSE URINE NEGATIVE (NEGATIVE); KETONE URINE 5 mg/dL (NEGATIVE); LEUKOCYTES URINE NEGATIVE /UL (NEGATIVE); NITRITE URINE NEGATIVE (NEGATIVE); PROTEIN URINE 30 mg/dL (NEGATIVE); SPEC GRAVITY URINE 1.015 (1.003-1.035); TURBIDITY URINE CLEAR (CLEAR); UROBILINOGEN URINE NORMAL (NORMAL)
[2016-11-30 14:27] LABS: EPITHELIAL URINE 0-2 #/HPF (NEGATIVE); RBC URINE 0-2 #/HPF (NEGATIVE)
[2016-11-30 14:28] LABS: BACTERIA URINE NEGATIVE (NEGATIVE)
== END 2016-11-30 14:56 | disposition disaster alternative care site (69) ==
LOC: GMED 12:19
PROVIDERS: Physician Assistant Medical
DX: R53.1 Weakness (principal); R63.0 Anorexia; D64.9 Anemia, unspecified; I10 Essential (primary) hypertension; E78.00 Pure hypercholesterolemia, unspecified; E03.9 Hypothyroidism, unspecified; G40.909 Epilepsy, unspecified, not intractable, without status epilepticus; K21.9 Gastro-esophageal reflux disease without esophagitis; Z88.0 Allergy status to penicillin; Z88.1 Allergy status to other antibiotic agents; Z88.8 Allergy status to other drugs, medicaments and biological substances; Z88.5 Allergy status to narcotic agent; Z79.82 Long term (current) use of aspirin; Z79.899 Other long term (current) drug therapy; Z79.01 Long term (current) use of anticoagulants
CPT/HCPCS: J7030